=== PATIENT | female | born 1950 | race Hispanic/Latino ===

== ENCOUNTER 2019-07-09 10:17 | Outpatient (CLI) | payer MEDICARE ==
--- NOTE | 2019-07-09 11:32 | Mammography Report ---
DIGITAL SCREENING MAMMOGRAM WITH CAD, 07/09/2019 INDICATION: Routine screening mammography. Breast cancer survivor status post right mastectomy with r ight implant reconstruction. TECHNIQUE: Digital left 2D mammography was obtained in the craniocaudal and mediolateral oblique pro jections. This examination was interpreted with the benefit of Computer-Aided Detection analysis. COMPARISON: 02/26/2019 FINDINGS: Breast Density: The breast is heterogeneously dense, which may obscure small masses. There is no evid ence of dominant mass, suspicious calcifications or architectural distortion in the left breast. A re troareolar biopsy clip and a few benign calcifications. IMPRESSION: No mammographic evidence of malignancy. Follow up recommendation: Routine yearly BI-RADS Category 2: Benign. A "normal" or negative report should not discourage follow up or biopsy of a clinically significant f inding. A written summary of these findings will be mailed to the patient. The patient will be entered into a mammography reporting system which will generate a reminder letter for the patient's next appointmen t at the appropriate interval. The [employer] recommends yearly mammograms starting at age 40 and continuing as l shell as a woman is in good health. Breast MRI is recommended for women with an approximate 20-25% or greater lifetime risk of breast cancer, including women with a strong family history of breast or ova marisela cancer or who have been treated for Hodgkin's disease. Signer Name: Kike Robles MD Signed: 07/09/2019 11:28 AM Workstation Name: [id number]
== END 2019-07-09 10:18 | disposition home or self-care (01) ==
LOC: SPVWC 10:17
PROVIDERS: ATTEND Surgery
DX: Z12.31 Encounter for screening mammogram for malignant neoplasm of breast (principal); N64.89 Other specified disorders of breast